=== PATIENT | female | born 1995 | race Caucasian/White ===

== ENCOUNTER 2023-08-12 16:26 | Emergency (ER) | payer OTHER ==
[2023-08-12 16:37] VITALS: BP 133/86; PULSE 81; RESP 20; TEMP 99; BMI 29.0
[2023-08-12] MEDS ORDERED: DIPHTH,PERTUSS(ACELL),TET 0.5 ML DISP.SYRIN IM ONE (18:50)
[2023-08-12] MEDS: TETANUS AND DIPHTHERIA TOXOID 0.5 ML DISP.SYRIN IM ONE (18:52)
== END 2023-08-12 19:07 | disposition home or self-care (01) ==
LOC: JERFT 16:26
PROC: 0HQGXZZ Repair Left Hand Skin, External Approach (ICD-10-PCS; principal; 2023-08-12)
PROC: 3E0234Z Introduction of Serum, Toxoid and Vaccine into Muscle, Percutaneous Approach (ICD-10-PCS; 2023-08-12)
DX: S61.012A Laceration without foreign body of left thumb without damage to nail, initial encounter (principal); W26.8XXA Contact with other sharp object(s), not elsewhere classified, initial encounter; Y93.G1 Activity, food preparation and clean up; Y92.000 Kitchen of unspecified non-institutional (private) residence as the place of occurrence of the external cause
CPT/HCPCS: 99282-25

== ENCOUNTER 2023-08-22 18:43 | Emergency (ER) | payer OTHER ==
[2023-08-22 18:51] VITALS: BP 126/83; PULSE 86; RESP 20; TEMP 98.6; BMI 31.1
== END 2023-08-22 20:23 | disposition home or self-care (01) ==
LOC: JERFT 18:43
DX: Z48.02 Encounter for removal of sutures (principal)
CPT/HCPCS: 99281-25